=== PATIENT | male | born 1980 | race African-American/Black ===

== ENCOUNTER 2020-05-18 20:31 | Emergency (ER) | payer OTHER ==
[~2020-05-18] VITALS: Ht 185.4 cm; Wt 95.3 kg
[2020-05-18 21:43] VITALS: BP 153/72
== END 2020-05-18 21:47 | disposition home or self-care (01) ==
LOC: ER 20:39 → EEVIPCON 20:39 → ER 21:47
DX: S43.004A Unspecified dislocation of right shoulder joint, initial encounter (principal); I10 Essential (primary) hypertension; W18.39XA Other fall on same level, initial encounter; Y93.89 Activity, other specified; Y92.89 Other specified places as the place of occurrence of the external cause; Y99.8 Other external cause status
CPT/HCPCS: 29105; 73030